=== PATIENT | female | born 1970 | race Caucasian/White ===

== ENCOUNTER 2017-07-15 21:00 | Inpatient (IN) | payer OTHER ==
[~2017-07-15] VITALS: Ht 175.3 cm; Wt 81.6 kg
--- NOTE | ~2017-07-15 | HP ---
Unit #: [id number] #: [id number] Patient: ARSALAN ESCOBEDO [id number] [place] [address] [id number] MR#: [id number] NAME: ARSALAN ESCOBEDO ROOM: P207 Age: 46 Sex: F Admission Date: 07/16/2017 : 1970 Attending Physician: Dino Velazquez M.D. Admitting Physician: Dino Velazquez M.D. Primary Care Physician: Addie Huddleston M.D. HISTORY AND PHYSICAL HISTORY OF PRESENT ILLNESS Patient is a 46-year-old female admitted to [address] [place] [address] on 07/16/2017 for suicidal ideation and addiction to prescription pills. PAST MEDICAL HISTORY 1. Jose Cruz's thyroiditis. 2. Migraines. PAST SURGICAL HISTORY 1. Cholecystectomy. 2. Right nephrectomy. 3. Bilateral tubal ligation. 4. Dental. SOCIAL HISTORY The patient works at [employer]. She lives with her son. She denies tobacco and alcohol use but uses daily prescription opiates. FAMILY MEDICAL HISTORY Noncontributory. ALLERGIES No known drug allergies. CURRENT MEDICATIONS 1. Synthroid 2. Wellbutrin 3. Trazodone REVIEW OF SYSTEMS CONSTITUTIONAL: No fever or chills. HEENT: Denies any sore throat, ear pain or runny nose. CARDIOVASCULAR: Denies chest pain, irregular heart rhythm or palpitations. CHEST: Denies shortness of breath or cough. No hemoptysis. GASTROINTESTINAL: Denies nausea, vomiting, diarrhea or chronic constipation. ENDOCRINE: Denies history of increased thirst or urination. No recent significant weight loss or gain. GENITOURINARY: Denies dysuria, frequency, or hematuria. SKIN: Denies any rashes. HEMATOLOGIC: Denies history of increased bleeding or bruising. MUSCULOSKELETAL: Denies any hot, swollen joints. No generalized muscle pain. Unit #: [id number] #: [id number] Patient: ARSALAN ESCOBEDO NEUROLOGIC: Denies problems with vision or speech. No frequent, severe headaches. No numbness, tingling or weakness in any extremities. Denies loss of bladder or bowel control. PHYSICAL EXAM GENERAL: She is awake, alert and oriented in no acute distress. VITAL SIGNS: Temperature 98.3, heart rate 80, respiration 16, blood pressure 129/79. HEIGHT: 5'9". WEIGHT: 180 pounds. SKIN: Warm and dry without rash or lesion. HEENT: Normocephalic. TMs not viewed. Oral and nasal passages clear. Conjunctivae clear. PERRLA. EOMs intact. NECK: Supple without lymphadenopathy or thyromegaly. HEART: Regular rate and rhythm without murmur. LUNGS: Clear. ABDOMEN: Soft, nontender. : Not done. EXTREMITIES: No evidence of cyanosis, clubbing or edema. Moves all without focal deficit. NEUROLOGICAL: Grossly within normal limits. Cranial Nerves: II: Visual morris are intact. III, IV AND : Extraocular movements are intact. Pupils are equal, round and reactive to light. V: Facial sensation is grossly normal. VII: Facial movements and expression are normal. VIII: Auditory acuity grossly intact. IX, X: Uvula is midline. Phonation is normal. XI: Patient shrugs shoulders and turns head normally. XII: Tongue protrudes in the midline. Sensory and Motor Function: Sensory and motor sensation is grossly normal. Motor: moves all extremities well. IMPRESSION 1. Psychiatric admission. 2. Jose Cruz's thyroiditis. 3. Migraine headaches. 4. Prescription opioid abuse. RECOMMENDATIONS Psychiatric per psychiatrist. MEDICAL: No contraindication to participate in facility activities. MEDICAL PROGNOSIS Good. MEDICAL CONDITION Stable. Dictated by... Baltazar Nagel/meka Unit #: [id number] #: [id number] Patient: ARSALAN ESCOBEDO TD: 07/17/2017 01:37 JOB #: [id number] HISTORY AND PHYSICAL Page 1 of 1 X ALAN YUEN APRN HISTORY AND PHYSICAL
--- NOTE | ~2017-07-15 | PN ---
Unit #: [id number] #: [id number] Patient: ARSALAN ESCOBEDO [id number] [facility] [address] [place] [address] [id number] MR#: [id number] NAME: ARSALAN ESCOBEDO ROOM: P207 Age: 46 Sex: F Admission Date: 07/16/2017 : 1970 Attending Physician: Dino Velazquez M.D. Admitting Physician: Dino Velazquez M.D. Primary Care Physician: Darline Kathleen PROGRESS NOTES DATE 07/17/2017 DISCUSSION The patient continues to complain of severe symptoms of opioid withdrawal but is pleasant and cooperative during today's interview. I have encouraged her to increase her participation within the therapeutic milieu when able to do so. Dictated by... Dino Velazquez M.D. CB/meka TD: 07/17/2017 21:42 JOB #: [id number] [facility] PROGRESS NOTES Page 1 of 1 X Dino Velazquez MD X PROGRESS NOTE
--- NOTE | ~2017-07-15 | DS ---
Unit #: [id number] #: [id number] Patient: ARSALAN ESCOBEDO [id number] [place] [address] [id number] MR#: [id number] NAME: ARSALAN ESCOBEDO ROOM: P207 Age: 46 Sex: F Admission Date: 07/16/2017 : 1970 Discharge Date: 07/18/2017 Attending Physician: Dino Velazquez M.D. Primary Care Physician: Addie Huddleston M.D. DISCHARGE SUMMARY REASON FOR ADMISSION The patient is a 46-year-old white female, admitted to the [address] [place] [address] for opioid detox. HOSPITAL COURSE The patient was admitted to the [address] [place] [address] unit and continued on previously prescribed medications including Paxil, Wellbutrin, Zyrtec, trazodone, and Synthroid. Her detox was an uneventful one, and by 07/18/2017, she was requesting discharge and it was so ordered. The patient planning to attend the chemical dependency intensive outpatient program following discharge. FINAL DIAGNOSES Opioid use disorder, dysthymic disorder, hypothyroidism, and environmental allergies. DISPOSITION ON DISCHARGE The patient is discharged on the following medications: Trazodone 100 mg at h.s. p.r.n. insomnia, Synthroid 0.112 mg daily for hypothyroidism, Zyrtec 5 mg nightly for environmental allergies, Paxil 20 mg daily for depression, and Wellbutrin XL 300 mg daily for depression. DISCHARGE INSTRUCTIONS No dietary or physical restrictions were placed on the patient at the time of discharge. FOLLOWUP Follow up will take place through the auspices of the chemical dependency intensive outpatient program provided by this facility. PROGNOSIS The patient's prognosis is considered fair. Dictated by... Dino Velazquez M.D. CB/edmundo TD: 07/18/2017 18:13 JOB #: [id number] Unit #: [id number] #: [id number] Patient: ARSALAN ESCOBEDO DISCHARGE SUMMARY Page 1 of 1 X Dino Velazquez MD X DISCHARGE SUMMARY
[~2017-07-15 21:00] MED LIST: ACETAMINOPHEN PO; AMITRIPTYLINE150 MG PO; AMITRYPTYLINE PO; BENADRYL25 MG PO; CELEXA PO; CHLORTHALIDONE25 MG PO; CLARITIN10 M1 PO; FIORICET1 TAB PO; IBUPROFEN200 M1 PO; IBUPROFEN800 MG PO; MELATONIN10 M1 PO; NASONEX17 GM; PAXIL10 MG PO; PEN-VEE K PO; POTASSIUM99 M1 PO; SYNTHROID; SYNTHROID0.05 MG PO; SYNTHROID112 MCG PO; TRAZODONE HCL100 MG PO; TRAZODONE PO; VICODIN 5/1 TAB 5/50 PO; WELLBUTRIN PO; ZOFRAN PO; ZYRTEC PO; ZYRTEC5 M4 PO
[2017-07-17 09:47] LABS: BASOPHIL% 0.3 % (0-2.5); EOSINOPHIL# 0.1 X10e3 (0-0.7); EOSINOPHIL% 0.9 % (0.0-7.0); HEMATOCRIT 39.4 % (35.0-45.0); HEMOGLOBIN 12.9 gm/dL (12.0-16.0); LYMPHOCYTE# 1.9 X10e3 (1.0-3.5); LYMPHOCYTE% 28.8 % (17.0-45.0); MEAN CELL VOLUME 87.3 FL (83-96); MEAN CORPUSCULAR HEMOGLOBIN 28.5 PG (28-34); MEAN CORPUSCULAR HGB CONC 32.7 g/dL (30-36); MEAN PLATELET VOLUME 10.7 FL (6.5-11.5); MONOCYTE# 0.4 X10e3 (0-1.0); MONOCYTE% 6.3 % (3.0-12.0); NEUTROPHIL# 4.3 X10e3 (1.5-7.1); NEUTROPHIL% 63.7 % (40-75); PLATELET COUNT 169 X10e3 (140-420); RED BLOOD COUNT 4.51 X10e (3.90-5.30); RED CELL DISTRIBUTION WIDTH 13.1 % (11.0-15.5); WHITE BLOOD COUNT 6.7 X10e3 (4.0-10.5)
[2017-07-17 09:51] LABS: DIFF IND NO
[2017-07-17 09:52] LABS: URINE APPEARANCE CLEAR; URINE BILIRUBIN NEG (NEG); URINE BLOOD NEG (NEG); URINE COLOR YELLOW; URINE GLUCOSE NEG (NEG); URINE KETONE NEG (NEG); URINE LEUKOCYTE ESTERASE NEG (NEG); URINE NITRATE NEG (NEG); URINE PROTEIN NEG (NEG); URINE SPECIFIC GRAVITY 1.027 (1.003-1.035)
[2017-07-17 10:03] LABS: ALBUMIN SERUM 4.1 g/dL (3.5-5.0); BILIRUBIN,TOTAL 0.6 mg/dL (0.2-2.0); BUN/CREATININE RATIO 21.66; CREATININE SERUM 0.6 mg/dL (0.6-1.4); GLOM FILT RATE Estimated 110.1 mL/min (>60); POTASSIUM 3.8 mmol/L (3.5-5.1); PROTEIN TOTAL SERUM 7.2 g/dL (6.0-8.3)
[2017-07-17 10:21] LABS: AMPHETAMINE NEG (NEG); BARBITURATES NEG (NEG); BENZODIAZEPINES NEG (NEG); COCAINE NEG (NEG); MARIJUANA NEG (NEG); OPIATES POS (NEG); TRICYCLIC ANTIDEPRESSANTS NEG (NEG); U METHADONE NEG (NEG)
== END 2017-07-18 15:53 | DRG 897 ==
LOC: P2S 07-16 00:49
PROVIDERS: Specialist
PROC: HZ2ZZZZ Detoxification Services for Substance Abuse Treatment (ICD-10-PCS; principal; 2017-07-16)
DX: F11.23 Opioid dependence with withdrawal (principal); R45.851 Suicidal ideations; F32.9 Major depressive disorder, single episode, unspecified; E06.3 Autoimmune thyroiditis; G43.909 Migraine, unspecified, not intractable, without status migrainosus
CPT/HCPCS: 80053; 80307; 81003; 84703; 85025